=== PATIENT | female | born 1950 | race Caucasian/White ===

== ENCOUNTER 2023-08-16 09:27 | Observation (INO) ==
[2023-08-16 10:23] LABS: Hemoglobin 6.1 g/dL (11.5-14.3); White Blood Count 211.8 10^3/uL (3.8-11.8)
[2023-08-16 11:48] LABS: ABS Basophils 0.3 10^3/uL (0.0-0.1); ABS Eosinophils 0.5 10^3/uL (0.0-0.5); ABS Lymphocytes 199.2 10^3/uL (1.0-4.8); ABS Monocytes 0.9 10^3/uL (0.0-0.9); ABS Neutrophils 10.9 10^3/uL (1.5-7.6); Anisocytosis 2+; Eosinophil % 0.2 %; Lymphocyte % 94.1 %; Macrocytosis 2+; Polychromasia 2+
[2023-08-16 11:53] LABS: Hematocrit 17.8 % (35-45); Mean Corpuscular Hemoglobin 38.1 pg (27-33); Mean Corpuscular Hgb Conc 34.3 g/dL (31-36); Mean Corpuscular Volume 111.3 fL (80-97)
[2023-08-16 11:54] LABS: Mean Platelet Volume 7.5 fL (7.5-11.2); Platelet Count 172 10^3/uL (150-450)
[2023-08-16] MEDS ORDERED: Metoprolol Tartrate 5 mg VIAL 5 ml VIAL (1 mg/ml) IV ONE (14:16)
[2023-08-16] MEDS ORDERED: Dextrose 50% Syringe 50 ml 25 GM/50 ML SYRINGE IV PUSH PRN (15:31)
[2023-08-16] MEDS ORDERED: Calcium Carb (TUMS) 500 mg CHEW TAB PO PRN (15:34)
[2023-08-16] MEDS ORDERED: Albuterol HFA INHALER 8 gm MDI INH PRN (15:34)
[2023-08-16 17:35] LABS: Albumin 4.2 g/dL (3.2-5.2); Calcium 8.7 mg/dL (8.6-10.3); Creatinine, Serum 0.73 mg/dL (0.51-0.95); Globulin 1.4 g/dL (2-4); Magnesium 1.8 mg/dL (1.9-2.7); Potassium 4.6 mmol/L (3.5-5.0); Total Bilirubin 2.8 mg/dL (0.2-1.0); Total Protein 5.6 g/dL (6.4-8.9); eGFR CKD-EPI 87.9 (>60)
[2023-08-16] MEDS ORDERED: Magnesium Sulfate 2 gm BAG 2 GM/50 ML BAG IVPB ONE (17:43)
[2023-08-16 19:08] LABS: Direct Bilirubin 0.5 mg/dL (0.03-0.18); Indirect Bilirubin 2.3 mg/dL (0.3-1.0)
[2023-08-16] MEDS ORDERED: Insulin GLARGINE 100 un/ml 10 ml VIAL SUBCUT SCH (21:00)
[2023-08-16] MEDS ORDERED: Metoprolol Tartrate 5 mg VIAL 5 ml VIAL (1 mg/ml) IV PRN (21:00)
[2023-08-17 06:35] LABS: Albumin 3.8 g/dL (3.2-5.2); Albumin/Globulin Ratio 2.7 (1-3); Calcium 8.3 mg/dL (8.6-10.3); Creatinine, Serum 0.54 mg/dL (0.51-0.95); Globulin 1.4 g/dL (2-4); Potassium 3.8 mmol/L (3.5-5.0); Total Bilirubin 2.3 mg/dL (0.2-1.0); Total Protein 5.2 g/dL (6.4-8.9); eGFR CKD-EPI 98.4 (>60)
[2023-08-17 07:47] LABS: Hemoglobin 7.2 g/dL (11.5-14.3); Mean Corpuscular Hemoglobin 35.2 pg (27-33); Mean Corpuscular Hgb Conc 31.3 g/dL (31-36); Mean Corpuscular Volume 112.4 fL (80-97); Mean Platelet Volume 7.7 fL (7.5-11.2); Platelet Count 146 10^3/uL (150-450); Red Blood Count 2.05 10^6/uL (3.63-4.92); Red Cell Distribution Width 37.7 % (12-17); White Blood Count 165.9 10^3/uL (3.8-11.8)
[2023-08-17 08:00] LABS: ABS Basophils 0.2 10^3/uL (0.0-0.1); ABS Eosinophils 0.1 10^3/uL (0.0-0.5); ABS Lymphocytes 157.4 10^3/uL (1.0-4.8); ABS Monocytes 0.9 10^3/uL (0.0-0.9); ABS Neutrophils 7.3 10^3/uL (1.5-7.6); ABS Nucleated RBC 0.22 10^3/ul; Nucleated Red Blood Cells % 0.1 %/100WBC (0.0-0.8)
[2023-08-17 08:01] LABS: Anisocytosis 2+; Basophilic Stippling 1+; Howell Jolly Bodies Present; Macrocytosis 2+; Microcytosis 1+; Polychromasia 2+; Smudge Cells Present
[2023-08-17 08:16] LABS: Magnesium 2.4 mg/dL (1.9-2.7)
[2023-08-17 10:33] VITALS: BP 125/56
== END 2023-08-17 14:35 | disposition home or self-care (01) ==
LOC: MEDTELE 09:27 → CHOA 09:27
PROVIDERS: ADMIT Internal Medicine Hematology; ATTEND Internal Medicine

== ENCOUNTER 2023-08-18 20:39 | Observation (INO) ==
[2023-08-18 21:40] LABS: Albumin 4.2 g/dL (3.2-5.2); Calcium 8.7 mg/dL (8.6-10.3); Creatinine, Serum 0.63 mg/dL (0.51-0.95); Globulin 1.4 g/dL (2-4); Magnesium 2.1 mg/dL (1.9-2.7); Potassium 4.7 mmol/L (3.5-5.0); Total Bilirubin 1.9 mg/dL (0.2-1.0); Total Protein 5.6 g/dL (6.4-8.9); eGFR CKD-EPI 94.8 (>60)
[2023-08-18 21:57] LABS: Hematocrit 26.9 % (35-45); Mean Corpuscular Hemoglobin 33.5 pg (27-33); Mean Corpuscular Hgb Conc 29.5 g/dL (31-36); Mean Corpuscular Volume 113.5 fL (80-97); Mean Platelet Volume 7.7 fL (7.5-11.2); Platelet Count 249 10^3/uL (150-450); Red Blood Count 2.37 10^6/uL (3.63-4.92); Red Cell Distribution Width 37.6 % (12-17)
[2023-08-18 21:58] LABS: Anisocytosis 2+; Polychromasia 1+; White Blood Count 195.5 10^3/uL (3.8-11.8)
[2023-08-18 22:39] LABS: High Sensitivity Troponin 1 Hr 39 pg/mL (<15)
[2023-08-19] MEDS ORDERED: Dextrose 50% Syringe 50 ml 25 GM/50 ML SYRINGE IV PUSH PRN (03:26)
[2023-08-19] MEDS ORDERED: Iodixanol (CONTRAST) 320 MG/ML 100 ML SDV IV ONE (07:18)
[2023-08-20 06:34] LABS: Calcium 8.7 mg/dL (8.6-10.3); Creatinine, Serum 0.64 mg/dL (0.51-0.95); Potassium 3.9 mmol/L (3.5-5.0); eGFR CKD-EPI 94.4 (>60)
[2023-08-20 08:07] LABS: Hemoglobin 7.9 g/dL (11.5-14.3); Mean Corpuscular Hgb Conc 30.4 g/dL (31-36); Mean Platelet Volume 7.8 fL (7.5-11.2); Platelet Count 312 10^3/uL (150-450); Red Blood Count 2.26 10^6/uL (3.63-4.92); Red Cell Distribution Width 36.7 % (12-17); White Blood Count 217.5 10^3/uL (3.8-11.8)
[2023-08-20 09:12] LABS: ABS Eosinophils 0.3 10^3/uL (0.0-0.5); ABS Lymphocytes 199.1 10^3/uL (1.0-4.8); ABS Monocytes 0.9 10^3/uL (0.0-0.9); ABS Neutrophils 9.3 10^3/uL (1.5-7.6); ABS Nucleated RBC 0.57 10^3/ul; Eosinophil % 0.1 %; Lymphocyte % 95.1 %; Nucleated Red Blood Cells % 0.3 %/100WBC (0.0-0.8)
[2023-08-20 13:38] VITALS: BP 121/57
== END 2023-08-20 14:00 | disposition home or self-care (01) ==
LOC: EDHOLD 20:39 → ED 20:39 → SUATTDRO 08-19 01:07 → MEDTELE 08-19 16:58
PROVIDERS: ADMIT Internal Medicine; ATTEND Hospitalist

== ENCOUNTER 2023-09-10 01:50 | Inpatient (IN) ==
[2023-09-10] MEDS ORDERED: methylPREDNISolone SOD SUCC 125 mg 2 ML VIAL IV ONE (02:13)
[2023-09-10 04:08] LABS: Albumin 3.8 g/dL (3.2-5.2); Albumin/Globulin Ratio 2.1 (1-3); Calcium 8.6 mg/dL (8.6-10.3); Creatinine, Serum 0.55 mg/dL (0.51-0.95); Globulin 1.8 g/dL (2-4); Magnesium 1.7 mg/dL (1.9-2.7); Potassium 3.4 mmol/L (3.5-5.0); Total Bilirubin 3.3 mg/dL (0.2-1.0); Total Protein 5.6 g/dL (6.4-8.9); eGFR CKD-EPI 97.9 (>60)
[2023-09-10 04:13] LABS: Hematocrit 24.4 % (35-45); Hemoglobin 8.1 g/dL (11.5-14.3); Mean Corpuscular Hemoglobin 35.3 pg (27-33); Mean Corpuscular Hgb Conc 33.1 g/dL (31-36); Mean Corpuscular Volume 106.6 fL (80-97); Mean Platelet Volume 7.4 fL (7.5-11.2); Platelet Count 236 10^3/uL (150-450); Red Blood Count 2.29 10^6/uL (3.63-4.92); Red Cell Distribution Width 22.5 % (12-17)
[2023-09-10 04:57] LABS: ABS Basophils 0.2 10^3/uL (0.0-0.1); ABS Eosinophils 0.1 10^3/uL (0.0-0.5); ABS Lymphocytes 64.8 10^3/uL (1.0-4.8); ABS Monocytes 0.7 10^3/uL (0.0-0.9); ABS Neutrophils 16.3 10^3/uL (1.5-7.6); ABS Nucleated RBC 0.31 10^3/ul; Eosinophil % 0.1 %; Nucleated Red Blood Cells % 0.4 %/100WBC (0.0-0.8)
[2023-09-10] MEDS ORDERED: Albuterol 2.5mg/3 ml (0.083%) NEB.SOLN INH ONE (05:30)
[2023-09-10] MEDS ORDERED: Ondansetron 4 mg VIAL 2 MG/ML 2 ml VIAL IV PRN (06:02)
[2023-09-10 06:04] LABS: High Sensitivity Troponin 1 Hr 25 pg/mL (<15)
[2023-09-10] MEDS ORDERED: Albuterol HFA INHALER 8 gm MDI INH PRN (06:10)
[2023-09-10] MEDS ORDERED: Dextrose 50% Syringe 50 ml 25 GM/50 ML SYRINGE IV PUSH PRN (06:11)
[2023-09-10] MEDS ORDERED: Magnesium Sulfate IV 1GM/100ML 1 GM/100 ML BAG IV ONE (06:12)
[2023-09-10 06:26] LABS: C Reactive Protein 170.76 mg/L (<8.01)
[2023-09-10] MEDS ORDERED: Levalbuterol 1.25MG/0.5ML NEB.SOL INH SCH (07:00)
[2023-09-10] MEDS ORDERED: Magnesium Sulfate 2 gm BAG 2 GM/50 ML BAG IVPB ONE (07:32)
[2023-09-10] MEDS ORDERED: Potassium EFFERVES 25 meq TAB PO ONE (07:32)
[2023-09-10] MEDS ORDERED: methylPREDNISolone SOD SUCC 40 mg/ml 1 ml VIAL IV SCH (08:00)
[2023-09-10] MEDS ORDERED: Remdesivir 100 mg Vial 200 MG in NS 0.9% 250 ml 210 ML IV ONE (09:00)
[2023-09-10] MEDS ORDERED: cefTRIAXone 1 gm/50 mL D5W 1 GM/50 ML BAG IV SCH (10:00)
[2023-09-10] MEDS: Levalbuterol HFA INHALER MDI INH SCH ×3 (11:05→20:16)
[2023-09-10 16:26] LABS: INR 1.73 (0.83-1.13)
[2023-09-10 16:41] LABS: Albumin 4.1 g/dL (3.2-5.2); Albumin/Globulin Ratio 1.7 (1-3); Calcium 8.8 mg/dL (8.6-10.3); Creatinine, Serum 0.59 mg/dL (0.51-0.95); Globulin 2.4 g/dL (2-4); Total Bilirubin 1.7 mg/dL (0.2-1.0); Total Protein 6.5 g/dL (6.4-8.9); eGFR CKD-EPI 96.3 (>60)
[2023-09-11] MEDS: Levalbuterol HFA INHALER MDI INH SCH ×4 (01:20→19:32)
[2023-09-11] MEDS ORDERED: Levalbuterol 1.25MG/0.5ML NEB.SOL INH PRN (03:00)
[2023-09-11 08:11] LABS: Hematocrit 26.8 % (35-45); Hemoglobin 8.3 g/dL (11.5-14.3); Mean Corpuscular Hemoglobin 33.2 pg (27-33); Mean Corpuscular Hgb Conc 30.8 g/dL (31-36); Mean Corpuscular Volume 107.9 fL (80-97); Mean Platelet Volume 7.7 fL (7.5-11.2); Platelet Count 282 10^3/uL (150-450); Red Blood Count 2.49 10^6/uL (3.63-4.92); Red Cell Distribution Width 22.5 % (12-17); White Blood Count 110.9 10^3/uL (3.8-11.8)
[2023-09-11 08:19] LABS: Creatinine, Serum 0.57 mg/dL (0.51-0.95); Magnesium 2.4 mg/dL (1.9-2.7); Total Bilirubin 1.6 mg/dL (0.2-1.0); eGFR CKD-EPI 97.1 (>60)
[2023-09-11] MEDS: Remdesivir 100 mg Vial 100 MG in NS 0.9% 250 ml 230 ML IV SCH (08:24)
[2023-09-11 09:05] LABS: INR 1.6 (0.83-1.13)
[2023-09-11 09:17] LABS: ABS Basophils 0.2 10^3/uL (0.0-0.1); ABS Eosinophils 0.1 10^3/uL (0.0-0.5); ABS Monocytes 1.5 10^3/uL (0.0-0.9); ABS Neutrophils 19.1 10^3/uL (1.5-7.6); ABS Nucleated RBC 0.26 10^3/ul; Lymphocyte % 81.3 %; Nucleated Red Blood Cells % 0.2 %/100WBC (0.0-0.8); Polychromasia 1+
[2023-09-11 09:18] LABS: RBC Morphology Normal (Normal)
[2023-09-11 09:24] LABS: Immature Retic Fraction 0.55
[2023-09-11] MEDS: cefTRIAXone 1 gm/50 mL D5W 1 GM/50 ML BAG IV SCH (09:56)
[2023-09-11] MEDS ORDERED: Albuterol/Ipratropium NEB.SOL (2.5/0.5 MG) 3 ML NEB.SOLN INH SCH (11:00)
[2023-09-11] MEDS ORDERED: Albuterol/Ipratropium NEB.SOL (2.5/0.5 MG) 3 ML NEB.SOLN INH PRN (11:36)
[2023-09-12] MEDS: Levalbuterol HFA INHALER MDI INH SCH ×4 (01:13→20:19)
[2023-09-12 07:41] LABS: INR 1.57 (0.83-1.13)
[2023-09-12 07:47] LABS: Albumin 3.4 g/dL (3.2-5.2); Albumin/Globulin Ratio 1.6 (1-3); Calcium 8.1 mg/dL (8.6-10.3); Creatinine, Serum 0.61 mg/dL (0.51-0.95); Globulin 2.1 g/dL (2-4); Magnesium 2.1 mg/dL (1.9-2.7); Total Bilirubin 1.1 mg/dL (0.2-1.0); Total Protein 5.5 g/dL (6.4-8.9); eGFR CKD-EPI 95.5 (>60)
[2023-09-12] MEDS: Remdesivir 100 mg Vial 100 MG in NS 0.9% 250 ml 230 ML IV SCH (08:39)
[2023-09-12 08:49] LABS: Hematocrit 25.7 % (35-45); Hemoglobin 7.8 g/dL (11.5-14.3); Mean Corpuscular Hgb Conc 30.5 g/dL (31-36); Mean Corpuscular Volume 108.3 fL (80-97); Mean Platelet Volume 8.1 fL (7.5-11.2); Platelet Count 282 10^3/uL (150-450); Red Blood Count 2.37 10^6/uL (3.63-4.92); Red Cell Distribution Width 21.6 % (12-17); White Blood Count 97.4 10^3/uL (3.8-11.8)
[2023-09-12] MEDS ORDERED: Metoprolol Tartrate 5 mg VIAL 5 ml VIAL (1 mg/ml) IV PRN (09:00)
[2023-09-12 09:55] LABS: ABS Basophils 0.1 10^3/uL (0.0-0.1); ABS Eosinophils 0.2 10^3/uL (0.0-0.5); ABS Lymphocytes 83.2 10^3/uL (1.0-4.8); ABS Monocytes 0.9 10^3/uL (0.0-0.9); ABS Neutrophils 13.1 10^3/uL (1.5-7.6); ABS Nucleated RBC 0.17 10^3/ul; Eosinophil % 0.2 %; Lymphocyte % 85.4 %; Nucleated Red Blood Cells % 0.2 %/100WBC (0.0-0.8); RBC Morphology Normal (Normal)
[2023-09-12] MEDS: cefTRIAXone 1 gm/50 mL D5W 1 GM/50 ML BAG IV SCH (10:05)
[2023-09-12] MEDS ORDERED: Lactated Ringers 1000 ml BAG 1,000 ML IV SCH (12:00)
[2023-09-12 14:26] LABS: Ferritin 1045.9 ng/mL (11-307)
[2023-09-12 19:54] LABS: Hematocrit 27.3 % (35-45); Hemoglobin 8.9 g/dL (11.5-14.3)
[2023-09-13] MEDS: Levalbuterol HFA INHALER MDI INH SCH ×4 (01:53→19:34)
[2023-09-13 07:36] LABS: Hematocrit 26.8 % (35-45); Hemoglobin 8.5 g/dL (11.5-14.3); Mean Corpuscular Hemoglobin 33.8 pg (27-33); Mean Corpuscular Hgb Conc 31.7 g/dL (31-36); Mean Corpuscular Volume 106.5 fL (80-97); Mean Platelet Volume 7.8 fL (7.5-11.2); Platelet Count 287 10^3/uL (150-450); Red Blood Count 2.52 10^6/uL (3.63-4.92); Red Cell Distribution Width 22.2 % (12-17)
[2023-09-13 07:48] LABS: INR 1.47 (0.83-1.13)
[2023-09-13 07:58] LABS: Albumin 3.5 g/dL (3.2-5.2); Albumin/Globulin Ratio 2.3 (1-3); Calcium 8.3 mg/dL (8.6-10.3); Creatinine, Serum 0.62 mg/dL (0.51-0.95); Globulin 1.5 g/dL (2-4); Magnesium 1.9 mg/dL (1.9-2.7); Potassium 3.8 mmol/L (3.5-5.0); eGFR CKD-EPI 95.1 (>60)
[2023-09-13] MEDS: Remdesivir 100 mg Vial 100 MG in NS 0.9% 250 ml 230 ML IV SCH (08:47)
[2023-09-13 10:23] LABS: ABS Basophils 0.3 10^3/uL (0.0-0.1); ABS Eosinophils 0.2 10^3/uL (0.0-0.5); ABS Lymphocytes 66.3 10^3/uL (1.0-4.8); ABS Monocytes 0.5 10^3/uL (0.0-0.9); ABS Neutrophils 6.8 10^3/uL (1.5-7.6); Eosinophil % 0.3 %; Lymphocyte % 89.5 %
[2023-09-13] MEDS: cefTRIAXone 1 gm/50 mL D5W 1 GM/50 ML BAG IV SCH (11:55)
[2023-09-14] MEDS: Levalbuterol HFA INHALER MDI INH SCH ×3 (01:17→13:21)
[2023-09-14 06:29] LABS: Hematocrit 27.8 % (35-45); Mean Corpuscular Hgb Conc 32.4 g/dL (31-36); Mean Corpuscular Volume 105.1 fL (80-97); Mean Platelet Volume 8.1 fL (7.5-11.2); Platelet Count 302 10^3/uL (150-450); Red Blood Count 2.65 10^6/uL (3.63-4.92); Red Cell Distribution Width 21.1 % (12-17); White Blood Count 85.6 10^3/uL (3.8-11.8)
[2023-09-14 06:31] LABS: INR 1.35 (0.83-1.13)
[2023-09-14 06:40] LABS: Albumin 3.6 g/dL (3.2-5.2); Albumin/Globulin Ratio 2.3 (1-3); Calcium 8.6 mg/dL (8.6-10.3); Creatinine, Serum 0.65 mg/dL (0.51-0.95); Globulin 1.6 g/dL (2-4); Magnesium 1.9 mg/dL (1.9-2.7); Potassium 3.7 mmol/L (3.5-5.0); Total Protein 5.2 g/dL (6.4-8.9); eGFR CKD-EPI 94.1 (>60)
[2023-09-14 06:45] LABS: ABS Basophils 0.2 10^3/uL (0.0-0.1); ABS Eosinophils 0.2 10^3/uL (0.0-0.5); ABS Monocytes 0.6 10^3/uL (0.0-0.9); ABS Neutrophils 7.7 10^3/uL (1.5-7.6); ABS Nucleated RBC 0.28 10^3/ul; Eosinophil % 0.2 %; Nucleated Red Blood Cells % 0.3 %/100WBC (0.0-0.8)
[2023-09-14] MEDS: Remdesivir 100 mg Vial 100 MG in NS 0.9% 250 ml 230 ML IV SCH (08:56)
[2023-09-14] MEDS: cefTRIAXone 1 gm/50 mL D5W 1 GM/50 ML BAG IV SCH (12:38)
[2023-09-14 14:48] VITALS: BP 149/87
== END 2023-09-14 16:30 | disposition home or self-care (01) | DRG 871 ==
LOC: ED 01:50 → EDHOLD 01:50 → SUATTDRO 06:02 → MED 13:10 → SUATTDRO 09-12 12:09
PROVIDERS: ADMIT Student in an Organized Health Care Education/Training Program; ATTEND Internal Medicine